=== PATIENT | female | born 1960 | race American Indian/Alaskan Native ===

== ENCOUNTER 2020-06-06 01:54 | Emergency (ER) | payer SELFPAY ==
[2020-06-06 03:33] VITALS: BP 173/85
[2020-06-06 04:41] LABS: Bilirubin,Urine NEG (Negative); Blood,Urine NEG (Negative); Color,Urine Yellow (Yellow); Hyaline Casts,Urine 1 /LPF; Mucus,Urine FEW /HPF; Protein,Urine <15 mg/dL mg/dL (Negative); Urobilinogen,Urine < 2.0 mg/dL (<2.0)
[2020-06-06 04:41] LABS: Basophils # (Auto) 0.1 K/mm3 (0.0-0.1); Eosinophils # (Auto) 0.2 K/mm3 (0.0-0.4); Eosinophils % (Auto) 1.4 % (0.0-4.3); Hematocrit 42.7 % (30.3-42.9); Hemoglobin 13.6 gm/dl (10.1-14.3); Lymphocytes # (Auto) 2.6 K/mm3 (1.2-5.4); Lymphocytes % (Auto) 21.9 % (13.4-35.0); Mean Corpuscular HGB Conc 32 % (30-34); Mean Corpuscular Volume 86 fl (79-97); Monocytes # (Auto) 0.8 K/mm3 (0.0-0.8); Monocytes % (Auto) 7.1 % (0.0-7.3); Platelet Count 354 K/mm3 (140-440); Red Blood Count 4.95 M/mm3 (3.65-5.03); Red Cell Distribution Width 13.7 % (13.2-15.2)
[2020-06-06 04:54] LABS: Alanine Aminotransferase 35 units/L (7-56); Albumin 4.3 g/dL (3.9-5); BUN/Creatinine Ratio 11; Blood Urea Nitrogen 10 mg/dL (7-17); Calcium 11.3 mg/dL (8.4-10.2); Hemolysis Index 13
[2020-06-06] MEDS ORDERED: ONDANSETRON 4 MG/2 ML INJ IV ONE (07:12)
[2020-06-06] MEDS ORDERED: MORPHINE 2 MG/1 ML INJ IV ONE (07:12)
--- NOTE | 2020-06-06 07:36 | Emergency Department Report ---
ED Abdominal Pain HPI - General Chief Complaint: Abdominal Pain Stated Complaint: ABD PAIN/BACKACHE Time Seen by Provider: 06/06/20 07:11 Source: patient Mode of arrival: Ambulatory Limitations: No Limitations - History of Present Illness Initial Comments: The patient was evaluated in the emergency department for symptoms described in the history of present illness. He/she was evaluated in the context of the global COVID-19 pandemic, which necessitated consideration that the patient might be at risk for infection with the virus that causes COVID-19. Institutional protocols and algorithms that pertain to the evaluation of patients at risk for COVID-19 are in a state of rapid change based on information released by regulatory bodies including the CDC and federal and state organizations. These policies and algorithms were followed during the [facility] in the emergency department. Please note that these policies, procedures and recommendations changed on a rapid basis. 60-year-old -[place] female presents to the emergency room for a 2-week history of lower back pain that is dull and achy in abdominal pain that is crampy and it feels like she is being punched in the stomach. Patient admits to nausea no vomiting. Patient reports that her symptoms started right after the of her mother and feels that all distress she has been dealing with is now become physical to her. Patient denies any recent injuries. She does admit to consuming Imodium AD and Pepto-Bismol for her stomach pain as well as she has been taking iron. Patient is now reporting she has not been able to have a bowel movement for several days. Patient has a past medical history of diabetes hypertension high cholesterol and anemia. She has no known drug allergies. MD Complaint: abdominal pain, other (Back pain) Onset/Timin -: week(s) Location: diffuse Severity scale (0 -10): 10 Quality: cramping, aching Consistency: constant Improves With: nothing Worsens With: nothing Associated Symptoms: nausea, constipation. denies: vomiting, diarrhea - Related Data Previous Rx's Medication Instructions Recorded Last Taken Type Meloxicam [Mobic] 7.5 mg PO QDAY #20 tablet 06/06/20 Unknown Rx Polyethylene Glycol 3350 [Miralax] 17 gm PO QDAY #119 gram 06/06/20 Unknown Rx Allergies Allergy/AdvReac Type Severity Reaction Status Date / Time No Known Allergies Allergy Unverified 06/06/20 03:32 ED Review of Systems ROS: Stated complaint: ABD PAIN/BACKACHE Other details as noted in HPI Comment: All other systems reviewed and negative ED Past Medical Hx - Past Medical History Previous Medical History?: Yes Hx Hypertension: Yes Hx Diabetes: Yes Additional medical history: High Cholesterol. Anemia - Surgical History Past Surgical History?: No - Social History Smoking Status: Current Every Day Smoker Substance Use Type: None - Medications Home Medications: Home Medications Medication Instructions Recorded Confirmed Last Taken Type Meloxicam [Mobic] 7.5 mg PO QDAY #20 tablet 06/06/20 Unknown Rx Polyethylene Glycol 3350 [Miralax] 17 gm PO QDAY #119 gram 06/06/20 Unknown Rx ED Physical Exam - General Limitations: No Limitations General appearance: alert, in distress - Head Head exam: Present: atraumatic, normocephalic - Eye Eye exam: Present: normal appearance - ENT ENT exam: Present: normal exam, mucous membranes moist - Neck Neck exam: Present: normal inspection, full ROM - Respiratory Respiratory exam: Present: normal lung sounds bilaterally. Absent: respiratory distress - Cardiovascular Cardiovascular Exam: Present: regular rate, normal rhythm. Absent: bradycardia, tachycardia - GI/Abdominal GI/Abdominal exam: Present: soft, tenderness, hypoactive bowel sounds - Extremities Exam Extremities exam: Present: normal inspection, full ROM - Back Exam Back exam: Present: full ROM, tenderness - Neurological Exam Neurological exam: Present: alert, oriented X3, normal gait - Psychiatric Psychiatric exam: Present: normal affect, depressed - Skin Skin exam: Present: warm, dry, intact, normal color. Absent: rash ED Course Vital Signs 06/06/20 03:29 Temperature 97.5 F L Pulse Rate 87 Respiratory 16 Rate Blood Pressure 173/85 O2 Sat by Pulse 96 Oximetry ED Medical Decision Making - Lab Data Result diagrams: 06/06/20 03:38 06/06/20 03:38 Laboratory Tests 06/06/20 06/06/20 06/06/20 03:38 03:38 04:25 WBC 11.7 H RBC 4.95 Hgb 13.6 Hct 42.7 MCV 86 MCH 27 L MCHC 32 RDW 13.7 Plt Count 354 Lymph % (Auto) 21.9 [place] % (Auto) 7.1 Eos % (Auto) 1.4 Baso % (Auto) 1.0 Lymph # (Auto) 2.6 [place] # (Auto) 0.8 Eos # (Auto) 0.2 Baso # (Auto) 0.1 Seg Neutrophils % 68.6 Seg Neutrophils # 8.1 H Sodium 136 L Potassium 3.9 Chloride 100.2 Carbon Dioxide 25 Anion Gap 15 BUN 10 Creatinine 0.9 Estimated GFR > 60 BUN/Creatinine Ratio 11 Glucose 115 H Calcium 11.3 H Total Bilirubin 0.20 AST 28 ALT 35 Alkaline Phosphatase 64 Total Protein 7.4 Albumin 4.3 Albumin/Globulin Ratio 1.4 Lipase 58 Urine Color Yellow Urine Turbidity Clear Urine pH 5.0 Ur Specific [place] 1.014 Urine Protein <15 mg/dl Urine Glucose (UA) Neg Urine Ketones Neg Urine Blood Neg Urine Nitrite Neg Urine Bilirubin Neg Urine Urobilinogen < 2.0 Ur Leukocyte Esterase Neg Urine WBC (Auto) 1.0 Urine RBC (Auto) 1.0 U Epithel Cells (Auto) < 1.0 Hyaline Casts 1 Urine Mucus Few - Radiology Data Radiology results: report reviewed [facility] [address] [place] [address] Cat Scan Report Signed Patient: DAMIEN MCKEON MR#: [id number] : 1960 Acct:[id number] Age/Sex: 60 / F ADM Date: 06/06/20 Loc: ED Attending Dr: Ordering Physician: ANA DURAN Date of Service: 06/06/20 Procedure(s): CT abdomen pelvis w con Accession Number(s): [id number] cc: ANA DURAN CT ABDOMEN AND PELVIS WITH CONTRAST INDICATION / CLINICAL INFORMATION: Acute unspecified abdominal pain and back pain. TECHNIQUE: Axial CT images were obtained through the abdomen and pelvis after 100 cc Omnipaque [address] scans at this location are performed using CT dose reduction for ALARA by means of automated exposure control. COMPARISON: None available. FINDINGS: LOWER CHEST: No significant abnormality. LIVER: A subcentimeter cyst is seen posteriorly and superiorly along the right hepatic lobe. No other significant abnormality. GALLBLADDER: No significant abnormality. BILE DUCTS: No significant abnormality. PANCREAS: No significant abnormality. SPLEEN: No significant abnormality. ADRENALS: No significant abnormality. RIGHT KIDNEY / URETER: There is a simple right upper renal pole cyst measuring 1.7 cm. Another tiny probable cyst is seen anteriorly along the right lower renal pole. No other significant abnormality. LEFT KIDNEY / URETER: There is a subcentimeter left renal midpole cyst without other significant abnormalities. STOMACH / SMALL BOWEL: No significant abnormality. COLON: No significant abnormality. APPENDIX: No significant abnormality. PERITONEUM: No free fluid. No free air. No fluid collection. LYMPH NODES: No significant adenopathy. AORTA / ARTERIES: There is mild generalized atherosclerosis without other significant abnormalities. IVC / VEINS: No significant abnormality. URINARY BLADDER: No significant abnormality. REPRODUCTIVE ORGANS: No significant abnormality. ADDITIONAL FINDINGS: None. SKELETAL SYSTEM: No acute abnormality. There is mild thoracolumbar spondylosis. IMPRESSION: 1. No acute findings. 2. Additional findings as above. Signer Name: Reid Ulloa MD Signed: 06/06/2020 8:08 AM Workstation Name: [id number] Transcribed By: SUMANTH Dictated By: Reid Ulloa MD Electronically Authenticated By: Reid Ulloa MD Signed Date/Time: 06/06/20807 DD/ 4 TD/TT: - Medical Decision Making 60-year-old -[place] female presents to the emergency room for a 2-week history of lower back pain that is dull and achy in abdominal pain that is crampy and it feels like she is being punched in the stomach. Patient admits to nausea no vomiting. Patient reports that her symptoms started right after the of her mother and feels that all distress she has been dealing with is now become physical to her. Patient denies any recent injuries. She does admit to consuming Imodium AD and Pepto-Bismol for her stomach pain as well as she has been taking iron. Patient is now reporting she has not been able to have a bowel movement for several days. Patient has a past medical history of diabetes hypertension high cholesterol and anemia. She has no known drug allergies. Lab work is unremarkable CT scan shows no acute abnormalities does show renal cysts as well as liver cysts. It also shows that she has spondylosis of back. Patient was given morphine Zofran prior to CT scan. Patient will be discharged home on Mobic and recommend taking MiraLAX for her constipation and to follow-up with a ict educator and a back specialist. Critical care attestation.: If time is entered above; I have spent that time in minutes in the direct care of this critically ill patient, excluding procedure time. ED Disposition Clinical Impression: Acute abdomen, Spondylosis of thoracic spine, Kidney cysts Disposition: DC-01 TO HOME OR SELFCARE Is pt being admited?: No Does the pt Need Aspirin: No Condition: Stable Instructions: Abdominal Pain (ED) Additional Instructions: CT scans negative for any acute abnormalities. Does show that you have multiple kidney cysts as well as a liver cyst. It shows that you have some degenerative back issues. I do recommend taking the Mobic for pain taking the MiraLAX to help move your bowels and to follow-up with the specialist that I have listed. Prescriptions: Polyethylene Glycol 3350 [Miralax] 17 gm PO QDAY #119 gram Meloxicam [Mobic] 7.5 mg PO QDAY #20 tablet [facility] [Primary Care Provider] - 3-5 Days LIZETTE ELAINE MD [Staff Physician] - 3-5 Days KARISHMA MONTOYA MD [Staff Physician] - 3-5 Days MARIFER SANTANA MD [Referring] - 3-5 Days [facility] [Provider Group] - 3-5 Days [facility] [Provider Group] - 3-5 Days Forms: Work/School Release Form(ED)
--- NOTE | 2020-06-06 08:13 | Cat Scan Report ---
CT ABDOMEN AND PELVIS WITH CONTRAST INDICATION / CLINICAL INFORMATION: Acute unspecified abdominal pain and back pain. TECHNIQUE: Axial CT images were obtained through the abdomen and pelvis after 100 cc Omnipaque [address] scans at this location are performed using CT dose reduction for ALARA by means of automated exposure control. COMPARISON: None available. FINDINGS: LOWER CHEST: No significant abnormality. LIVER: A subcentimeter cyst is seen posteriorly and superiorly along the right hepatic lobe. No other significant abnormality. GALLBLADDER: No significant abnormality. BILE DUCTS: No significant abnormality. PANCREAS: No significant abnormality. SPLEEN: No significant abnormality. ADRENALS: No significant abnormality. RIGHT KIDNEY / URETER: There is a simple right upper renal pole cyst measuring 1.7 cm. Another tiny p robable cyst is seen anteriorly along the right lower renal pole. No other significant abnormality. LEFT KIDNEY / URETER: There is a subcentimeter left renal midpole cyst without other significant abno rmalities. STOMACH / SMALL BOWEL: No significant abnormality. COLON: No significant abnormality. APPENDIX: No significant abnormality. PERITONEUM: No free fluid. No free air. No fluid collection. LYMPH NODES: No significant adenopathy. AORTA / ARTERIES: There is mild generalized atherosclerosis without other significant abnormalities. IVC / VEINS: No significant abnormality. URINARY BLADDER: No significant abnormality. REPRODUCTIVE ORGANS: No significant abnormality. ADDITIONAL FINDINGS: None. SKELETAL SYSTEM: No acute abnormality. There is mild thoracolumbar spondylosis. IMPRESSION: 1. No acute findings. 2. Additional findings as above. Signer Name: Reid Ulloa MD Signed: 06/06/2020 8:08 AM Workstation Name: [email or web address]
== END 2020-06-06 09:23 | disposition home or self-care (01) ==
LOC: ED 01:54
DX: M47.894 Other spondylosis, thoracic region (principal); N28.1 Cyst of kidney, acquired
CPT/HCPCS: 36415; 74177; 80053; 81001; 83690; 85025; 96374; 96375; 99284; J2270; J2405; Q9967